=== PATIENT | male | born 1950 | race Caucasian/White ===

== ENCOUNTER 2017-07-25 11:01 | Emergency (ER) | payer MEDICARE, OTHER ==
[~2017-07-25] VITALS: Ht 175.3 cm; Wt 75.3 kg
[~2017-07-25 11:01] MED LIST: FINASTERIDE5 MG PO; FOSINOPRIL PO; LEVOTHYROXINE75 MCG PO; NORVASC10 MG PO; RANITIDINE HCL300 MG PO
[2017-07-25] MEDS ORDERED: LORAZEPAM 0.5 MG TAB PO ONE (13:00)
[2017-07-25] MEDS ORDERED: SODIUM CHLORIDE 0.9% 1000ML 1,000 ML IV ONE (14:30)
[2017-07-25 14:31] LABS: ACETAMINOPHEN < 3 ug/mL (10-30); SALICYLATE < 5.0 mg/dL (0-30)
[2017-07-25 17:38] VITALS: BP 142/70
== END 2017-07-25 17:40 ==
LOC: FSED 11:01
DX: R11.0 Nausea (principal); R50.9 Fever, unspecified; R05 Cough; N40.0 Benign prostatic hyperplasia without lower urinary tract symptoms; F32.9 Major depressive disorder, single episode, unspecified; I10 Essential (primary) hypertension
CPT/HCPCS: 36415; 80307; 80320; 80329 ×2; 93005; 96360; 99284; J7030